=== PATIENT | female | born 2005 | race Caucasian/White ===

== ENCOUNTER 2024-01-24 16:59 | Emergency (ER) | payer OTHER, BC ==
[~2024-01-24] VITALS: Ht 160 cm; Wt 74.8 kg
[2024-01-24 17:07] VITALS: BP 123/85; PULSE 84; RESP 18; TEMP 98.3; O2SAT 99
--- NOTE | 2024-01-24 17:16 | NUR ---
PT AMB TO BED 2
--- NOTE | 2024-01-24 17:23 | NUR ---
BENJAMIN ROTHMAN AT BEDSIDE FOR EVALUATION
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
[2024-01-24] MEDS: IBUPROFEN 600 MG TAB PO ONE (17:56)
--- NOTE | 2024-01-24 18:02 | NUR ---
pt taken to xray via w/c
--- NOTE | 2024-01-24 18:20 | NUR ---
pt brought back via w/c
--- NOTE | 2024-01-24 19:25 | NUR ---
REPORT GIVEN TO SANDEE PARTIDA. TRANSFER OF CARE AT THIS TIME
--- NOTE | 2024-01-24 19:30 | NUR ---
PATIENT AWAKE, ALERT, APPEARS COMFORTABLE IN BED. NO COMPLAINTS OF PAIN OR SIGNS OF ACUTE DISTRESS AT THIS TIME. HEAD OF BED ELEVATED, SIDE RAILS UP, BED IN LOW/LOCKET POSITION, CALL LIGHT WITHIN REACH. FAMILY MEMBER AT BEDSIDE.
[2024-01-24] MEDS ORDERED: CYCL-711 PO (19:51)
--- NOTE | 2024-01-24 20:12 | NUR ---
Patient discharged. Written and verbal after care instructions given and explained. Patient alert, oriented and verbalized understanding of instructions. Ambulatory with steady gait. All questions addressed prior to discharge. ID band removed. Patient advised to follow up with PMD. Rx of Flexeril given. Patient educated on indication of medication including possible reaction and side effects. Opportunity to ask questions provided and answered.
== END 2024-01-24 20:12 | disposition home or self-care (01) ==
LOC: MED 16:59
DX: S96.911A Strain of unspecified muscle and tendon at ankle and foot level, right foot, initial encounter (principal); Z79.899 Other long term (current) drug therapy; V43.62XA Car passenger injured in collision with other type car in traffic accident, initial encounter; Y93.89 Activity, other specified; Y92.89 Other specified places as the place of occurrence of the external cause; Y99.8 Other external cause status
CPT/HCPCS: 71045; 72050; 73590; 73610; 81025; 99284